=== PATIENT | male | born 1985 | race American Indian/Alaskan Native ===

== ENCOUNTER 2021-05-21 17:02 | Emergency (ER) | payer SELFPAY ==
--- NOTE | 2021-05-21 18:28 | Emergency Department Report ---
ED Psych HPI - General Chief Complaint: Medical Clearance Stated Complaint: PSYH ISSUES/DETOX Time Seen by Provider: 05/21/21 18:25 Source: patient Mode of arrival: Ambulatory - History of Present Illness Initial Comments: Chief complaint: "I am suicidal." HPI: This 35-year-old male with history of hypertension, bipolar disorder, anxiety, depression, marijuana and alcohol dependency was brought by the [facility] [employer] [facility]. He requested detox from marijuana and alcohol. He initially stated that he was not suicidal to triage nurse. He then returned to the registration window stating that he wants to walk out in traffic. MD Complaint: suicidal ideation, feels depressed, other (Marijuana and alcohol dependence) -: This afternoon Associated Psychiatric Symptoms: depression, suicidal ideation History of same: Yes Quality: constant Improves With: none Worsens With: achohol, drug use Context: recent alcohol abuse, recent drug abuse Associated Symptoms: denies other symptoms Treatments Prior to Arrival: none If Self Harm: has plan - Related Data Home Medications Medication Instructions Recorded Confirmed Last Taken FLUoxetine [PROzac] 05/21/21 05/21/21 Unknown QUEtiapine [SEROquel] 100 mg PO QHS 05/21/21 05/21/21 Unknown Trazodone HCl 100 mg PO QHS 05/21/21 05/21/21 Unknown Allergies Allergy/AdvReac Type Severity Reaction Status Date / Time No Known Allergies Allergy Unverified 05/21/21 17:07 ED Review of Systems ROS: Stated complaint: PSYH ISSUES/DETOX Other details as noted in HPI Comment: All other systems reviewed and negative Constitutional: denies: chills, fever, malaise ENT: denies: throat pain Respiratory: denies: cough Cardiovascular: denies: chest pain Gastrointestinal: denies: abdominal pain, nausea, vomiting Musculoskeletal: denies: back pain ED Past Medical Hx - Past Medical History Previous Medical History?: Yes Hx Hypertension: Yes Hx Psychiatric Treatment: Yes (Anxiety depression bipolar disorder) - Surgical History Past Surgical History?: No - Family History Family history: hypertension - Social History Smoking Status: Current Every Day Smoker Substance Use Type: Alcohol, Marijuana - Medications Home Medications: Home Medications Medication Instructions Recorded Confirmed Last Taken Type FLUoxetine [PROzac] 05/21/21 05/21/21 Unknown History QUEtiapine [SEROquel] 100 mg PO QHS 05/21/21 05/21/21 Unknown History Trazodone HCl 100 mg PO QHS 05/21/21 05/21/21 Unknown History ED Physical Exam - General Limitations: No Limitations General appearance: alert, in no apparent distress - Head Head exam: Present: atraumatic, normocephalic - Eye Eye exam: Present: normal appearance - ENT ENT exam: Present: mucous membranes moist - Neck Neck exam: Present: normal inspection, full ROM - Respiratory Respiratory exam: Present: normal lung sounds bilaterally. Absent: respiratory distress, wheezes, rales, rhonchi - Cardiovascular Cardiovascular Exam: Present: regular rate, normal rhythm, normal heart sounds. Absent: systolic murmur, diastolic murmur, rubs, gallop - GI/Abdominal GI/Abdominal exam: Present: soft, normal bowel sounds. Absent: distended, ten derness, guarding, rebound - Rectal Rectal exam: Present: deferred - Extremities Exam Extremities exam: Present: normal inspection - Neurological Exam Neurological exam: Present: alert, oriented X3, normal gait - Psychiatric Psychiatric exam: Present: normal affect, agitated - Skin Skin exam: Present: warm, dry, intact, normal color. Absent: rash ED Course Vital Signs 05/21/21 05/21/21 05/21/21 17:08 18:37 19:30 Temperature 98.9 F 98 F Pulse Rate 86 88 Respiratory 20 18 Rate Blood Pressure 204/121 Blood Pressure 156/98 [Left] O2 Sat by Pulse 100 99 100 Oximetry 05/22/21 05/22/21 05/22/21 10:37 10:38 11:03 Temperature Pulse Rate 72 72 Respiratory 16 Rate Blood Pressure 167/92 Blood Pressure 162/97 [Left] O2 Sat by Pulse 100 100 Oximetry - Reevaluation(s) Reevaluation #1: 05/21/21 18:34 Patient was agitated and aggressive toward multiple staff members. Patient required chemical restraint. I ordered 20 mg Geodon IM. Reevaluation #2: 05/21/21 19:08 Nurse informed me that patient exposed himself and asked her to perform an inappropriate sexual act. She immediately placed in seclusion. I have e valuated patient. Seclusion order was appropriate. ED Medical Decision Making - Lab Data Result diagrams: 05/21/21 18:46 05/21/21 18:46 - Medical Decision Making Mr. Loera is a 35-year-old male with history of anxiety depression bipolar disorder hypertension who presents with suicidal ideation with plan to run into traffic. He is medically clear for psychiatric care. I have ordered antihypertensive medications to be given the morning. Awaiting treatment recommendations by psychiatric team. I have reviewed CBC chemistry serum toxicology screen. All unremarkable. Patient is medically clear for psychiatric care. Covid test negative UDS positive for marijuana urinalysis negative for infection or acute process. Patient is medically clear. Critical care attestation.: If time is entered above; I have spent that time in minutes in the direct care of this critically ill patient, excluding procedure time. ED Disposition Clinical Impression: Bipolar disorder, Suicidal ideation Disposition: 30 STILL A PATIENT Is pt being admited?: No Does the pt Need Aspirin: No Condition: Stable
[2021-05-21] MEDS ORDERED: ZIPRASIDONE MESYLATE 20 MG VIAL IM STA (18:33)
[2021-05-21 19:26] LABS: Basophils % (Auto) 0.7 % (0.0-1.8); Eosinophils % (Auto) 0.6 % (0.0-4.3); Hematocrit 41.6 % (35.5-45.6); Hemoglobin 13.2 gm/dl (11.8-15.2); Lymphocytes # (Auto) 1.5 K/mm3 (1.2-5.4); Lymphocytes % (Auto) 21.8 % (13.4-35.0); Mean Corpuscular HGB Conc 32 % (32-34); Mean Corpuscular Volume 86 fl (84-94); Monocytes # (Auto) 0.4 K/mm3 (0.0-0.8); Monocytes % (Auto) 5.1 % (0.0-7.3); Platelet Count 327 K/mm3 (140-440); Red Blood Count 4.83 M/mm3 (3.65-5.03); Red Cell Distribution Width 14.2 % (13.2-15.2)
[2021-05-21 19:36] LABS: BUN/Creatinine Ratio 10; Blood Urea Nitrogen 10 mg/dL (9-20); Calcium 9.8 mg/dL (8.4-10.2); Hemolysis Index 6
[2021-05-22] MEDS ORDERED: LORazepam 2 MG/ML VIAL IM ONE (03:37)
[2021-05-22] MEDS ORDERED: ZIPRASIDONE MESYLATE 20 MG VIAL IM ONE (03:37)
[2021-05-22 09:40] LABS: Bacteria,Urine 1+ /HPF (Negative); Bilirubin,Urine NEG (Negative); Blood,Urine NEG (Negative); Color,Urine Yellow (Yellow); Mucus,Urine FEW /HPF; Protein,Urine <15 mg/dL mg/dL (Negative); Urobilinogen,Urine < 2.0 mg/dL (<2.0)
[2021-05-22 09:44] LABS: Amphetamine Screen,Urine Negative; Benzodiazepines Screen,Urine Negative; Cocaine Screen,Urine Negative; Methadone Screen,Urine Negative; Opiate Screen,Urine Negative
[2021-05-22 09:57] LABS: Cannabinoid Screen,Urine Positive
[2021-05-22] MEDS ORDERED: VALSARTAN 40 MG TAB PO SCH (10:00)
[2021-05-22] MEDS ORDERED: amLODIPine 10 MG TAB PO SCH (10:00)
--- NOTE | 2021-05-22 10:22 | Consultation ---
History of Present Illness - Reason for Consult Consult date: 05/22/21 Reason for consult: suicidal ideation - History of Present Psychiatric Illness ED Note: This 35-year-old male with history of hypertension, bipolar disorder, anxiety, depression, marijuana and alcohol dependency was brought by the production [facility] [employer] [facility]. He requested detox from marijuana and alcohol. He initially stated that he was not suicidal to triage nurse. He then returned to the registration window stating that he wants to walk out in [facility]. The patient was seen sleeping. Per nurse, he recently received Geodon 20 IM.inj. for agitation. Diagnoses: PAST MEDICAL HISTORY: unknown Family Psychiatric History: None reported or documented SOCIAL HISTORY REVIEW OF SYSTEMS MENTAL STATUS EXAMINATION Assessment and Plan (1)Bipolar Current Visit: Yes Status: Acute 1013 Treatment Plan The patient needs to follow up with his outpatient psychiatrist and therapist. Continue home meds Disposition: Recommend psychiatric inpatient admission at this time. Will follow. Thanks Case staffed with Dr. Duke Medications and Allergies Medications and Allergies Allergies Allergy/AdvReac Type Severity Reaction Status Date / Time No Known Allergies Allergy Unverified 05/21/21 17:07 Home Medications Medication Instructions Recorded Confirmed Last Taken Type FLUoxetine [PROzac] 05/21/21 05/21/21 Unknown History QUEtiapine [SEROquel] 100 mg PO QHS 05/21/21 05/21/21 Unknown History Trazodone HCl 100 mg PO QHS 05/21/21 05/21/21 Unknown History Active Meds: Active Medications Amlodipine Besylate (Amlodipine 10 Mg Tab) 10 mg PO DAILY [facility] Valsartan (Valsartan 40 Mg Tab) 80 mg PO DAILY [facility] Mental Status Exam - Vital signs Last Vital Signs Temp 98 F 05/21/21 19:30 Pulse 88 05/21/21 19:30 Resp 18 05/21/21 19:30 BP 156/98 05/21/21 19:30 Pulse Ox 100 05/21/21 19:30 Results Result Diagrams: 05/21/21 18:46 05/21/21 18:46 Abnormal lab results 05/21/21 05/21/21 05/21/21 Range/Units 18:46 18:46 18:46 MCH 27 L (28-32) pg Seg Neutrophils % 71.8 H (40.0-70.0) % Potassium 3.5 L (3.6-5.0) mmol/L Carbon Dioxide 21 L (22-30) mmol/L Salicylates < 0.3 L (2.8-20.0) mg/dL Acetaminophen (10.0-30.0) ug/mL 05/21/21 Range/Units 18:46 MCH (28-32) pg Seg Neutrophils % (40.0-70.0) % Potassium (3.6-5.0) mmol/L Carbon Dioxide (22-30) mmol/L Salicylates (2.8-20.0) mg/dL Acetaminophen 5.0 L (10.0-30.0) ug/mL All other labs normal.
--- NOTE | 2021-05-22 12:21 | Event Note ---
Date: 05/22/21 S: Patient was reportedly sexually inappropriate and aggressive yesterday requiring medication. Patient calm now O: Vital Signs - 8 hr 05/22/21 05/22/21 05/22/21 10:37 10:38 11:03 Pulse Rate 72 72 Respiratory 16 Rate Blood Pressure 167/92 Blood Pressure 162/97 [Left] O2 Sat by Pulse 100 100 Oximetry A: Bipolar disorder P: 1013/awaiting inpatient psych
[2021-05-22] MEDS ORDERED: LORazepam 2 MG/ML VIAL IM PRN (18:00)
--- NOTE | 2021-05-23 09:15 | Progress Note ---
Subjective - Reason for Consult Consult date: 05/23/21 Reason for consult: Mental health evaluation - Chief Complaint Chief complaint: The patient was seen this morning. He reports doing well, states he came for detox. The patient presents with no withdrawal symptoms. He denies any current suicidal/homicidal ideation and denies hallucinations. REVIEW OF SYSTEMS MENTAL STATUS EXAMINATION Assessment and Plan (1)Bipolar Current Visit: Yes Status: Acute DC 1013 Treatment Plan Continue Seroquel 25mg po BID and 50mg po QHS The patient needs to follow up with his outpatient psychiatrist and therapist. Continue home meds Disposition: Do not recommend psychiatric inpatient admission at this time. [facility] will provide the patient with psychiatric out patient resources. Will sign off. Thanks Case staffed with Dr. Duke Medications and Allergies Mental Status Exam - Vital signs Last Vital Signs Temp 98 F 05/21/21 19:30 Pulse 72 05/22/21 11:03 Resp 16 05/22/21 10:37 BP 167/92 05/22/21 11:03 Pulse Ox 100 05/22/21 10:38
[2021-05-23 10:31] VITALS: BP 148/92
== END 2021-05-23 13:33 | disposition home or self-care (01) ==
LOC: ED 17:02
DX: R45.851 Suicidal ideations (principal); F31.9 Bipolar disorder, unspecified; I10 Essential (primary) hypertension; Z20.822 Contact with and (suspected) exposure to COVID-19
CPT/HCPCS: 36415; 80048; 80307; 81001; 85025; 96372; 99284; J2060; J3486; U0003; 80320; G0480